=== PATIENT | female | born 1970 | race American Indian/Alaskan Native ===

== ENCOUNTER 2017-07-17 16:10 | Emergency (ER) | payer MEDICAID ==
[2017-07-17 16:26] VITALS: TEMP 99.2; BMI 29.7
--- NOTE | 2017-07-17 16:55 | ED PDOC ---
Arrival/HPI - General Historian: Patient - History of Present Illness Time/Duration: 4-6 hours Symptom Course: Worsening Quality: Throbbing - General Chief Complaint: Upper Extremity Problem/Injury Time Seen by Provider: 07/17/17 16:16 - History of Present Illness Narrative History of Present Illness (Text): 07/17/17 16:51 47 yo F with PMH of obesity s/p gastric band procedure presents to ER complaining of left thumb pain. Patient reports that she fell this morning while in [employer] class and injured her thumb. She is not able to recall the exact mechanism of the injury. She had pain immediately afterwards. She wore a splint and went to work, and now presents to the ER because the thumb pain has been getting progressively worse. (Jarred Caballero) Past Medical History - Provider Review Nursing Documentation Reviewed: Yes - Travel History Have you recently traveled outside [place] w/in the past 3 mons?: No - Past History Past History: No Previous - Infectious Disease Hx of Infectious Diseases: None - Tetanus Immunization Tetanus Immunization: Unknown - Reproductive Menopause: No Currently : No - Past Medical History Past Medical History: No Previous - Psychiatric Hx Substance Use: No - Surgical History Hx Hysterectomy: Yes - Anesthesia Hx Anesthesia Reactions: No Hx Malignant Hyperthermia: No Family/Social History - Physician Review Nursing Documentation Reviewed: Yes Family/Social History: No Known Family HX Smoking Status: Never Smoked Hx Alcohol Use: Yes Frequency of alcohol use: Socially Hx Substance Use: No Allergies/Home Meds Allergies/Adverse Reactions: Allergies No Known Allergies Allergy (Verified 07/17/17 16:40) Review of Systems - Review of Systems Constitutional: Normal Eyes: Normal ENT: Normal Respiratory: Normal Cardiovascular: Normal Gastrointestinal: Normal Genitourinary Female: Normal Musculoskeletal: Other (Left thumb pain) Skin: Normal Neurological: Normal Endocrine: Normal Hemo/Lymphatic: Normal Psychiatric: Normal Physical Exam Vital Signs Reviewed: Yes Temperature: Afebrile Blood Pressure: Normal Pulse: Regular Respiratory Rate: Normal Appearance: Positive for: Well-Appearing, Non-Toxic, Comfortable Pain Distress: None Mental Status: Positive for: Alert and Oriented X 3 - Systems Exam Head: Present: Atraumatic, Normocephalic Pupils: Present: PERRL Extroacular Muscles: Present: EOMI Conjunctiva: Present: Normal Mouth: Present: Moist Mucous Membranes Neck: Present: Normal Range of Motion Respiratory/Chest: Present: Clear to Auscultation, Good Air Exchange. No: Respiratory Distress, Accessory Muscle Use Cardiovascular: Present: Regular Rate and Rhythm, Normal S1, S2. No: Murmurs Upper Extremity: Present: Other (Left thumb MCP swollen compared to right. Mild erythema, warmth, and ecchymosis over dorsal-medial aspect. Severe tenderness over 1st MCP joint. Mild tenderness over 1st metacarpal bone. ROM limited in all planes due to pain. Sensation intact. No snuffbox tenderness) Neurological: Present: GCS=15, CN II-XII Intact, Speech Normal Skin: Present: Warm, Dry, Normal Color Psychiatric: Present: Alert, Oriented x 3, Normal Insight, Normal Concentration Vital Signs Temp Pulse Resp BP Pulse Ox 07/17/17 16:10 99.2 F 73 16 120/79 100 Medical Decision Making Reassessment Condition: Re-examined, Improving,but remains with symptoms ED Course and Treatment: 07/17/17 18:10 Patient Seen With Resident: In agreement with resident note which contains more details about the patient. Patient was seen and evaluated with resident. Came up with plan and treatment together.. (Devon Vu) 07/17/17 16:59 Impression: Left thumb injury Differential Diagnosis included but are not limited to: fracture, sprain, strain, dislocation/sublucation Plan: -- Left hand 3-view XR -- Motrin for pain -- Apply ice -- Reassess and disposition Prior Visits: None Progress Notes: 07/17/17 17:59 -- Hand XR negative as interpreted by me; pending official read -- Pain slightly improved with motrin and ice -- Applied thumb spica splint -- Patient will be discharged to home with spica splint on left thumb; recommend to use NSAIDs for pain and inflammation; follow up with primary care doctor within 3-5 days and repeat hand XR in one week to rule out scaphoid fracture. Return to the ER for new or worsening concerns. (Jarred Caballero) - RAD Interpretation Radiology Orders: 07/17/17 16:41 HAND LEFT 3 VIEWS ROUTINE [RAD] Stat - Medication Orders Current Medication Orders: Discontinued Medications Ibuprofen (Motrin Tab) 600 mg PO STAT STA Stop: 07/17/17 16:42 Last Admin: 07/17/17 16:48 Dose: 600 mg Disposition/Present on Arrival - Present on Arrival Any Indicators Present on Arrival: No History of DVT/PE: No History of Uncontrolled Diabetes: No Urinary Catheter: No History of Decub. Ulcer: No History Surgical Site Infection Following: None - Disposition Have Diagnosis and Disposition been Completed?: Yes Disposition Time: 18:06 Patient Plan: Discharge - Disposition Diagnosis: Left thumb sprain Disposition: HOME/ ROUTINE Patient Problems: Current Active Problems Problem Status Onset Left thumb sprain Acute Condition: GOOD Discharge Instructions (ExitCare): Sprained Thumb (DC) Additional Instructions: -- Continue to wear the splint; should not be so tight as to cause discoloration , numbness/tingling, or swelling of the fingers -- Use ibuprofen as needed for pain; no more than 2400mg in 24 hours -- Continue to ice your thumb periodically, 10-15 minutes every hour -- Follow up with your primary care doctor within one week; consider repeat hand XR in one week if symptoms persist Referrals: Alek Gauthier [Primary Care Provider] - Follow up with primary Forms: M[employer] (Turkmen)
--- NOTE | 2017-07-17 18:05 | RAD ---
PROCEDURE: Left Hand Radiographs. HISTORY: Thumb injury. COMPARISON: None. FINDINGS: BONES: No evidence of acute displaced fracture nor dislocation. The osseous structures appear intact. No cortical destructive changes are identified. JOINTS: Joint spaces relatively preserved. No significant osteoarthritic changes. SOFT TISSUES: Normal. OTHER FINDINGS: None. IMPRESSION: No evidence of acute displaced fracture nor dislocation. If symptoms persist or occult fracture suspected clinically consider repeat radiographs 5-10 days as most fractures should become radiographically evident in this timeframe. .
[2017-07-17 18:21] VITALS: BP 124/76; PULSE 68; RESP 18; O2SAT 98
== END 2017-07-17 18:24 | disposition home or self-care (01) ==
LOC: ED 16:10 → MERGE 16:10 → ED 18:24
DX: S63.602A Unspecified sprain of left thumb, initial encounter (principal); W18.30XA Fall on same level, unspecified, initial encounter; Y93.49 Activity, other involving dancing and other rhythmic movements; Y92.89 Other specified places as the place of occurrence of the external cause